=== PATIENT | female | born 1960 | race Caucasian/White ===

== ENCOUNTER 2023-01-29 04:41 | Emergency (ER) | payer BC ==
[~2023-01-29] VITALS: Ht 157.5 cm; Wt 75.0 kg
[2023-01-29 04:59] VITALS: BP 136/66
[2023-01-29] MEDS ORDERED: MYCOL15O TOP (05:34)
== END 2023-01-29 05:43 | disposition home or self-care (01) ==
LOC: ER 04:43
DX: N76.89 Other specified inflammation of vagina and vulva (principal); I10 Essential (primary) hypertension; F17.200 Nicotine dependence, unspecified, uncomplicated; Z72.89 Other problems related to lifestyle; Z79.899 Other long term (current) drug therapy
CPT/HCPCS: 99283